=== PATIENT | male | born 1980 | race Caucasian/White ===

== ENCOUNTER 2017-04-17 23:36 | Emergency (ER) | payer OTHER ==
[~2017-04-17] VITALS: Ht 180.3 cm; Wt 92.0 kg
[2017-04-17 23:40] VITALS: Ht 180.3 cm; Wt 92.0 kg
--- NOTE | 2017-04-18 00:33 | ERA ---
ER Documentation Chief Complaint Date/Time DATE: 04/18/17 TIME: 00:31 Chief Complaint chest pain x 2 days HPI The patient is a 37-year-old male, presenting to the ER because of left-sided chest pain intermittently for 2 days, 04/19, worse with movement. He denies similar symptoms previously, denies fever, chills, neck pain, chest pain with exertion or vomiting or diaphoresis, denies abdominal pain, vomiting, dysuria, diarrhea.. He smokes, does amphetamine, denies drinking Past medical history: Hypertension, erectile dysfunction Past surgical history: Right wrist ROS All systems reviewed and are negative except as per history of present illness. Medications Home Meds Active Scripts Ibuprofen* (Motrin*) 600 Mg Tab, 600 MG PO Q6H Y for PAIN AND OR ELEVATED TEMP, #30 TAB Prov:MELLISSA MERRITT MD 04/18/17 Levofloxacin* (Levofloxacin*) 750 Mg Tablet, 750 MG PO DAILY, #10 TAB Prov:MELLISSA MERRITT MD 04/18/17 Allergies Allergies: Coded Allergies: No Known Drug Allergies (Verified Allergy, Unknown, 04/17/17) Physical Exam Vitals Vital Signs Date Time Temp Pulse Resp B/P Pulse Ox O2 Delivery O2 Flow Rate FiO2 04/18/17 00:42 Nasal Cannula 3 04/17/17 23:40 98.2 103 20 134/96 99 Physical Exam Const: No acute distress. Head: Atraumatic. Eyes: Normal Conjunctiva. ENT: Normal External Ears, Nose and Mouth. Neck: Full range of motion. No meningismus. Resp: Clear to auscultation bilaterally. Cardio: Regular rate and rhythm. Abd: Soft, non distended, normal bowel sounds, non tender. Skin: No petechiae or rashes. Back: No midline or flank tenderness. Ext: No cyanosis, or edema. Neur: Awake and alert. No focal deficit Psych: Normal Mood and Affect. Result Diagram: 04/18/179904/18/17 010 Results 24 hrs Laboratory Tests Test 04/18/17 01:00 White Blood Count 11.710^3/ul Red Blood Count 4.6510^6/ul Hemoglobin 14.8g/dl Hematocrit 43.5% Mean Corpuscular Volume 93.5fl Mean Corpuscular Hemoglobin 31.8pg Mean Corpuscular Hemoglobin Concent 34.0g/dl Red Cell Distribution Width 12.6% Platelet Count 10861^3/UL Mean Platelet Volume 8.9fl Neutrophils % 66.8% Lymphocytes % 20.1% Monocytes % 10.6% Eosinophils % 1.5% Basophils % 0.7% Nucleated Red Blood Cells % 0.0/100WBC Neutrophils # 7.810^3/ul Lymphocytes # 2.310^3/ul Monocytes # 1.210^3/ul Eosinophils # 0.210^3/ul Basophils # 0.110^3/ul Nucleated Red Blood Cells # 0.010^3/ul Prothrombin Time 12.9Sec Prothrombin Time Ratio 1.0 INR International Normalized Ratio 0.97 Activated Partial Thromboplast Time 28.9Sec Sodium Level 142mmol/L Potassium Level 4.7mmol/L Chloride Level 106mmol/L Carbon Dioxide Level 28mmol/L Anion Gap 13 Blood Urea Nitrogen 18mg/dl Creatinine 0.93mg/dl Glucose Level 85mg/dl Calcium Level 9.5mg/dl Troponin I < 0.012ng/ml Urine Opiates Screen Negative Urine Barbiturates Negative Urine Amphetamines Screen POSITIVE Urine Benzodiazepines Screen Negative Urine Cocaine Screen Negative Urine Cannabinoids Negative Ethyl Alcohol Level < 10.0mg/dl Current Medications Medications (Trade) Dose Ordered Sig/Azeem Route PRN Reason Start Time Stop Time Status Last Admin Dose Admin Ketorolac Tromethamine 30 mg 30 mg ONCE STAT IV 04/18/17 00:38 04/18/17 00:40 DC 04/18/17 01:09 Levofloxacin/ Dextrose (Levaquin 750 Mg/ D5W 150 ml (Pmx)) 150 ml @ 100 mls/hr ONCE ONCE IVPB 04/18/17 02:00 04/18/17 03:29 Procedures/[place] [id number] Radiology Main Line: [phone] DIAGNOSTIC IMAGING REPORT Patient: HANNAH ARREDONDO : 1980 Age: 37 Sex: M MR #: [id number] DOS: 04/18/17 0038 Ordering MD: MELLISSA MERRITT MD Location: E/R Room/Bed: PROCEDURE: CHEST - 1 VIEW CLINICAL INDICATION: 37-year-old male with chest pain. TECHNIQUE: A single frontal AP upright portable view of the chest was performed. The images were reviewed on a PACS workstation. COMPARISON: None. FINDINGS: The cardiomediastinal silhouette is within normal limits. There is patchy left lower lung zone infiltrate.. There is no evidence for congestive heart failure. There is no evidence for pneumothorax. The osseous structures are intact. IMPRESSION: Patchy left lower lung zone infiltrate. .Pascual Constantino MD, MD Date Time Electronically viewed and signed by .Pascual Constantino MD, MD on 04/18/2017 00:56 .M/ CC: MELLISSA MERRITT MD EKG: Read by emergency physician Rate/Rhythm: Normal Sinus Rhythm 96 beats/min QRS, ST, T-waves: No ST elevation, no T inversion, sinus arrhythmia, LVH Impression: Abnormal EKG MEDICAL MAKING DECISION: The patient is a 37-year-old male, presenting with acute pneumonia, amphetamine abuse. He was treated with Toradol 30 mg IV for pain, Levaquin IV for acute pneumonia with good response. The differential diagnoses considered include but are not limited to acute coronary syndrome, acute myocardial infarction, pericarditis, pulmonary embolism , aortic dissection, pneumonia, pleural effusion, pneumothorax, GERD, chest wall pain. Departure Diagnosis: Primary Impression: Pneumonia Additional Impression: Amphetamine abuse Condition: Good Comments He was discharged with Levaquin and Motrin I discussed the findings with the patient. I advised the patient to follow-up with the primary physician in about 1-2 days, sooner if needed and return if any concern. The patient's blood pressure was elevated (>120/80) but appears stable without evidence of hypertension emergency or urgency. The patient was counseled about the risks of hypertension and urged to pursue outpatient monitoring and therapy within a week with their primary care physician. MELLISSA MERRITT MD Apr 18, 2017 00:33
[2017-04-18] MEDS ORDERED: KETOROLAC 30 MG INJ IV STA (00:38)
--- NOTE | 2017-04-18 00:57 | RADRPT ---
PROCEDURE: CHEST - 1 VIEW CLINICAL INDICATION: 37-year-old male with chest pain. TECHNIQUE: A single frontal AP upright portable view of the chest was performed. The images were reviewed on a PACS workstation. COMPARISON: None. FINDINGS: The cardiomediastinal silhouette is within normal limits. There is patchy left lower lung zone infi ltrate.. There is no evidence for congestive heart failure. There is no evidence for pneumothorax. T he osseous structures are intact. IMPRESSION: Patchy left lower lung zone infiltrate. .Pascual Constantino MD, MD Date Time Electronically viewed and signed by .Pascual Constantino MD, MD on 04/18/2017 00:56 .M/
[2017-04-18 01:20] LABS: ADD SCAN DIFF NO
[2017-04-18 01:23] LABS: BASOPHIL # 0.1 10^3/ul (0.0-0.1); BASOPHILS % 0.7 % (0.0-2.0); EOSINOPHILS # 0.2 10^3/ul (0.0-0.5); EOSINOPHILS % 1.5 % (0.0-7.0); HEMATOCRIT 43.5 % (42.0-52.0); HEMOGLOBIN 14.8 g/dl (14.0-18.0); LYMPHOCYTES # 2.3 10^3/ul (0.8-2.9); LYMPHOCYTES % 20.1 % (15.0-51.0); MEAN CORPUSCULAR HEMOGLOBIN 31.8 pg (29.0-33.0); MEAN CORPUSCULAR VOLUME 93.5 fl (82.0-101.0); MEAN PLATELET VOLUME 8.9 fl (7.4-10.4); MONOCYTE # 1.2 10^3/ul (0.3-0.9); MONOCYTES % 10.6 % (0.0-11.0); NEUTROPHIL # 7.8 10^3/ul (1.6-7.5); NEUTROPHILS % 66.8 % (39.0-77.0); PLATELET COUNT 281 10^3/UL (140-415); RED BLOOD COUNT 4.65 10^6/ul (4.70-6.10); RED CELL DISTRIBUTION WIDTH 12.6 % (11.5-14.5); WHITE BLOOD COUNT 11.7 10^3/ul (4.8-10.8)
[2017-04-18 01:40] LABS: ANION GAP 13 (8-16); BLOOD UREA NITROGEN 18 mg/dl (7-20); CALCIUM 9.5 mg/dl (8.4-10.2); CARBON DIOXIDE 28 mmol/L (21-31); CHLORIDE 106 mmol/L (97-110); CREATININE 0.93 mg/dl (0.61-1.24); GLUCOSE 85 mg/dl (70-220); POTASSIUM 4.7 mmol/L (3.5-5.1); SODIUM 142 mmol/L (135-144)
[2017-04-18 01:42] LABS: INR 0.97; PROTIME 12.9 Sec (12.2-14.2)
[2017-04-18 01:43] LABS: PARTIAL THROMBOPLASTIN TIME 28.9 Sec (25.0-35.0)
[2017-04-18 01:48] LABS: BARBITURATES Negative (NEGATIVE); BENZODIAZEPINES Negative (NEGATIVE); CANNABINOIDS Negative (NEGATIVE); COCAINE Negative (NEGATIVE); OPIATES Negative (NEGATIVE)
[2017-04-18 01:57] LABS: TROPONIN-I < 0.012 ng/ml (0.00-0.12)
[2017-04-18] MEDS ORDERED: LEVOFLOXACIN 750MG/D5W (PMX) 150 ML IVPB ONE (02:00)
[2017-04-18 02:06] LABS: ETHANOL < 10.0 mg/dl
[2017-04-18] MEDS ORDERED: LEVO750T8 PO (02:26)
[2017-04-18] MEDS ORDERED: IBUP-1542 PO (02:27)
[2017-04-18 04:02] VITALS: BP 126/93; PULSE 104; RESP 16
== END 2017-04-18 04:04 | disposition home or self-care (01) ==
LOC: E/R 23:36
DX: J18.9 Pneumonia, unspecified organism (principal); F15.10 Other stimulant abuse, uncomplicated; I10 Essential (primary) hypertension
CPT/HCPCS: 71010; 80048; 80306; 80307; 84484; 85025; 85610; 85730; 93005; 96374; 96375; 99285; J1885; J1956